=== PATIENT | male | born 1990 | race Caucasian/White ===

== ENCOUNTER 2023-07-04 09:54 | Emergency (ER) | payer MEDICAID, OTHER ==
[~2023-07-04] VITALS: Ht 165.1 cm; Wt 91.0 kg
[~2023-07-04 09:54] MED LIST: CEPH500T MT; LANTUSUD SUBCUT
[2023-07-04 10:02] VITALS: O2SAT 97
[2023-07-04 10:17] LABS: HEMATOCRIT. 40.2 % (42.0-52.0); HEMOGLOBIN. 13.5 g/dL (14.0-18.0); MEAN CORPUSCULAR HEMOGLOBIN 29.1 pg (28.0-32.0); MEAN CORPUSCULAR HGB CONC 33.5 g/dL (31.0-37.0); MEAN CORPUSCULAR VOLUME 86.8 fL (80.0-94.0); MEAN PLATELET VOLUME 8.3 fl (7.4-10.4); PLATELET 436 x1000/uL (130-400); RED BLOOD CELL COUNT 4.63 mill/uL (4.7-6.1); RED CELL DISTRIBUTION WIDTH 13.4 % (11.6-14.6); WHITE BLOOD COUNT 14.3 x1000/uL (4.5-11.0)
[2023-07-04 10:23] LABS: DIFFERENTIAL COMMENT 1
[2023-07-04 10:26] LABS: CARBON DIOXIDE 24 mEq/L (21-32); CHLORIDE 99 mEq/L (98-107); POTASSIUM 4.3 mEq/L (3.5-5.1); SODIUM 130 mEq/L (136-145)
[2023-07-04 10:27] LABS: CALCIUM 8.3 mg/dL (8.7-10.4)
[2023-07-04 10:31] LABS: CREATININE 0.9 mg/dL (0.6-1.3)
[2023-07-04 10:32] LABS: UREA NITROGEN BLOOD 16 mg/dL (9-23)
[2023-07-04 10:33] LABS: ALANINE AMINOTRANSFERASE 60 IU/L (10-49); ALBUMIN 3.7 g/dL (3.2-4.8); ASPARTATE AMINOTRANSFERASE 32 IU/L (<34)
[2023-07-04 10:34] LABS: BILIRUBIN TOTAL 0.2 mg/dL (0.1-1.0)
[2023-07-04 10:36] LABS: GLUCOSE 475 mg/dL (70-105)
[2023-07-04 10:51] LABS: PLATELET ESTIMATE INCREASED; TEAR DROP CELLS 1+
[2023-07-04] MEDS ORDERED: METF-414 MT (11:00)
[2023-07-04] MEDS ORDERED: DEXTROSE 50% WATER 50ML SYRINGE IV PRN (11:00)
[2023-07-04] MEDS ORDERED: BLOO-1812 MC (11:00)
[2023-07-04] MEDS: SODIUM CHLORIDE 0.9% 1,000 ML IV ONE (11:25)
[2023-07-04 11:30] VITALS: BP 142/69; PULSE 89; RESP 18; TEMP 98.3
[2023-07-04] MEDS: INSULIN LISPRO 100 UNITS/ML SUBCUT SCH (11:39)
[2023-07-04] MEDS ORDERED: BLOOD SUGAR DIAGNOSTIC STRIP TEST SCH (13:00)
== END 2023-07-04 11:48 | disposition home or self-care (01) ==
LOC: ER 09:54
DX: L02.11 Cutaneous abscess of neck (principal); E11.65 Type 2 diabetes mellitus with hyperglycemia; F12.10 Cannabis abuse, uncomplicated
CPT/HCPCS: 99283; 80053; 82962; 85025; 36415; 96372; J1815; J7030